=== PATIENT | female | born 2000 | race African-American/Black ===

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

== ENCOUNTER 2018-07-02 16:29 | Emergency (ER) | payer OTHER, SELFPAY ==
[2018-07-02 17:07] LABS: Bilirubin Small (Negative); Blood, Urine Negative (Negative); Clarity Clear (Clear); Glucose, Urine (Dipstick) Negative (Negative); Leukocyte Negative (Negative); Nitrite Negative (Negative); Protein, Urine (Dipstick) 30 mg/dL (Neg-Trace)
[2018-07-02 17:33] LABS: Pregnancy Test - Urine (BHCG) POSITIVE (Negative); Pregu Control Background? CLEAR/WHITE (CLR/WHITE); Pregu Control Bar Appear? YES (CONTROL BAR)
[2018-07-02 17:38] LABS: Bacteria/HPF None Seen HPF (None Seen); RBC/HPF 0-3 HPF (0-3); WBC/HPF None Seen HPF (0-3)
== END 2018-07-02 17:59 | disposition home or self-care (01) ==
LOC: NAV ERS 16:29
DX: O21.9 Vomiting of pregnancy, unspecified (principal); O99.341 Other mental disorders complicating pregnancy, first trimester; F90.9 Attention-deficit hyperactivity disorder, unspecified type; O99.331 Smoking (tobacco) complicating pregnancy, first trimester; F17.210 Nicotine dependence, cigarettes, uncomplicated; Z3A.01 Less than 8 weeks gestation of pregnancy
CPT/HCPCS: 81003; 81015; 81025; 99284

== ENCOUNTER 2018-10-11 12:01 | Outpatient (CLI) | payer OTHER ==
--- NOTE | 2018-10-11 15:54 | ULT ---
OBSTETRICAL ULTRASOUND: 10/11/18 HISTORY: 18-year-old female undergoing assessment for size and dates. TECHNIQUE: Multiplanar tapia scale sonographic imaging of the gravid uterus obtained. FINDINGS: A single intrauterine gestation is present. The performing service person documents a transverse lie. The placenta is located posteriorly. No evidence for previa or abruption. The imaged intracranial contents appear grossly unremarkable. spine, region of kidneys, a nd region of urinary bladder appears grossly unremarkable. Umbilical cord insertion site appear s within normal limits and a three vessel cord is documented. heart rate is 140 beats per minute. Four chamber heart view is suboptimal secondary to po sition. nose and lips appear grossly unremarkable. Region of stomach within normal limits . Amniotic fluid index is approximately 9.6 cm. BIOMETRY: BPD 4.6 cm 20 weeks, 0 days HC 17.5 cm 20 weeks, 0 days AC 15.7 cm 20 weeks, 6 days FL 3.5 cm 21 weeks, 1 day Average aged based on ultrasound is 20 weeks, 2 days plus/minus one week, 0 days. Estimated date of d elivery is 02/26/19. Estimated weight is 279 grams plus/ minus 5 7 grams. IMPRESSION: Single intrauterine gestation as detailed above. Four chamber heart view is suboptimal secondary to position. POS: [facility]
== END 2018-10-11 12:02 | disposition home or self-care (01) ==
LOC: NAV ULT 12:01
PROVIDERS: ATTEND Family Medicine
DX: Z34.82 Encounter for supervision of other normal pregnancy, second trimester (principal)
CPT/HCPCS: 76805

== ENCOUNTER 2019-01-22 09:13 | Outpatient (CLI) | payer OTHER ==
--- NOTE | 2019-01-22 11:24 | ULT ---
EXAM: US OB Complete STANDARD PROVIDED CLINICAL HISTORY: Follow up growth, amniotic fluid index, and position of umbilical artery. COMPARISON: 10/11/2018. FINDINGS: Again noted is a single intrauterine gestation in cephalic presentation. Cardiac Doppler demonstrates heart tones with a heart rate of 162 bpm. The placenta was not imaged on this exam. Images of the lower uterine segment do not demonstrate evidence of placenta previa. The cervix is obs cured due to shadowing. Subjectively, there is a decrease in amniotic fluid volume. However, an amniotic fluid index of 9.4 c m was obtained. biometry measurements: Biparietal diameter 8.34 cm, 33 weeks 4 days Head circumference 30.1 cm, 33 weeks 3 days Abdominal circumference 30.44 cm, 34 weeks 3 days Femur length 6.73 cm, 34 weeks 4 days The estimated gestational age by ultrasound is 33 weeks and 5 days with an EV on 03/07/2019. Gestatio nal age by last menstrual period is 34 weeks and 5 days. The estimated weight by ultrasound is 2388 g (5 pounds, 4 ounces). This represents 32.6 percent ile for weight. There has been interval growth when compared to prior study on 10/11/2018. There is evidence of a 4 chambered heart. The stomach is visualized and has a normal sonographic appe arance. However the degree of the anatomic structures are not well evaluated on this exam. Umbilical artery Doppler evaluation only includes arterial waveform and heart rate. The peak systolic and end-diastolic velocities were not measured, and as a result the pulsatility index or resistive indices are not calculated on this exam. IMPRESSION: 1. Single intrauterine gestation in cephalic presentation with heart tones documented. 2. Subjectively, there appears to be a decrease in amniotic fluid volume, but an amniotic fluid index of 9.4 cm is obtained. 3. Majority of the anatomical structures were not evaluated on this examination. An appropriate umbilical artery Doppler examination was also not performed on this exam.
== END 2019-01-22 09:14 | disposition home or self-care (01) ==
LOC: NAV ULT 09:13
PROVIDERS: ATTEND Family Medicine
DX: O36.5933 Maternal care for other known or suspected poor fetal growth, third trimester, fetus 3 (principal); Z3A.33 33 weeks gestation of pregnancy
CPT/HCPCS: 76805

== ENCOUNTER 2019-01-30 13:53 | Emergency (ER) | payer OTHER ==
[2019-01-30 14:13] LABS: #Basophils 0.1 thou/uL (0.0-0.2); #Lymphocytes 1.3 thou/uL (1.20-3.40); #Monocytes 0.5 thou/uL (0.11-0.59); #Neutrophils 6.6 thou/uL (1.40-6.50); %Basophils 1.4 % (0.0-1.0); %Eosinophils 0.3 % (0.0-10.0); %Lymphocytes 14.9 % (21.0-51.0); %Monocytes 6.2 % (0.0-10.0); %Neutrophils 77.2 % (42.0-75.0); Mean Corpuscular HGB CONC 31.8 g/dL (32.0-36.0); Mean Corpuscular Hemoglobin 29.6 pg (27.0-31.0); Mean Corpuscular Volume 92.9 fL (78.0-98.0); Platelet Count 351 thou/uL (130-400); RBC Distribution Width 13.6 % (11.5-14.5); Red Blood Cell (RBC) Count 3.73 mill/uL (4.20-5.40); White Blood Cell (WBC) Count 8.5 thou/uL (4.8-10.8)
[2019-01-30 14:25] LABS: Bilirubin Negative (Negative); Blood, Urine Negative (Negative); Clarity Clear (Clear); Glucose, Urine (Dipstick) Negative (Negative); Leukocyte Negative (Negative); Nitrite Negative (Negative); Protein, Urine (Dipstick) Trace mg/dL (Neg-Trace); Specific Gravity, Urine 1.015 (1.005-1.030); pH, Urine 7.5 (5.0-9.0)
[2019-01-30 14:37] LABS: ALT (SGPT) 9 U/L (8-55); AST (SGOT) 23 U/L (5-34); Albumin 3.6 g/dL (3.5-5.0); Alkaline Phosphatase 203 U/L (40-150); Anion Gap 16 mmol/L (10-20); BUN (Urea Nitrogen) 4 mg/dL (7.0-18.7); Bilirubin, Total 0.6 mg/dL (0.2-1.2); Calc. Creatinine Clearance 0 mL/min (70-130); Calcium 9.3 mg/dL (7.8-10.44); Carbon Dioxide 18 mmol/L (22-29); Chloride 107 mmol/L (98-107); Estimated GFR-MDRD Greater than 90; Globulin 3.6 g/dL (2.4-3.5); Glucose 81 mg/dL (70-105); Potassium 3.9 mmol/L (3.5-5.1); Protein, Total 7.2 g/dL (6.0-8.3); Sodium 137 mmol/L (136-145)
== END 2019-01-30 14:28 | disposition short-term general hospital (02) ==
LOC: NAV ERS 13:53
DX: O75.89 Other specified complications of labor and delivery (principal); O99.343 Other mental disorders complicating pregnancy, third trimester; F90.9 Attention-deficit hyperactivity disorder, unspecified type; O99.333 Smoking (tobacco) complicating pregnancy, third trimester; F17.210 Nicotine dependence, cigarettes, uncomplicated; Z3A.37 37 weeks gestation of pregnancy
CPT/HCPCS: 51701; 80053; 81003; 85025; A4353

== ENCOUNTER 2021-05-06 10:38 | Emergency (ER) | payer OTHER, SELFPAY ==
[2021-05-06 23:18] LABS: SARS-CoV-2 PCR by NAA Not Detected (NotDetected)
== END 2021-05-06 11:05 | disposition home or self-care (01) ==
LOC: NAV ERS 10:38
DX: J06.9 Acute upper respiratory infection, unspecified (principal); Z20.822 Contact with and (suspected) exposure to COVID-19
CPT/HCPCS: 99283; U0003; U0005

== ENCOUNTER 2025-01-02 20:09 | Emergency (ER) | payer BC, SELFPAY | END 2025-01-02 21:31 | disposition home or self-care (01) | LOC: NAV ERS 20:09 | DX: J20.9 Acute bronchitis, unspecified (principal); E11.9 Type 2 diabetes mellitus without complications | CPT/HCPCS: 71045; 87428; 93005 ==

== ENCOUNTER 2025-07-13 22:29 | Emergency (ER) | payer BC, OTHER, SELFPAY ==
[2025-07-13] MEDS ORDERED: Cephalexin 500 MG CAP ONE (22:51)
[2025-07-13] MEDS ORDERED: Naproxen 500 MG TAB ONE (22:51)
[2025-07-13] MEDS ORDERED: Lidocaine Viscous Sol 2% 15 ml UD Cup ONE (22:52)
[2025-07-13 23:27] LABS: #Basophils 0.1 thou/uL (0.0-0.2); #Eosinophils 0.4 thou/uL (0.0-0.7); #Lymphocytes 3.4 thou/uL (1.20-3.40); #Monocytes 0.6 thou/uL (0.11-0.59); #Neutrophils 3.9 thou/uL (1.40-6.50); %Basophils 1.4 % (0.0-1.0); %Eosinophils 4.3 % (0.0-10.0); %Lymphocytes 40.6 % (21.0-51.0); %Monocytes 6.9 % (0.0-10.0); %Neutrophils 46.8 % (42.0-75.0); Hematocrit 34.8 % (36.0-47.0); Hemoglobin 12.2 g/dL (12.0-16.0); Mean Corpuscular Hemoglobin 31.0 pg (27.0-31.0); Mean Corpuscular Volume 88.3 fl (78.0-98.0); Platelet Count 374 10x3/uL (130-400); Red Blood Cell (RBC) Count 3.94 mill/uL (4.20-5.40); White Blood Cell (WBC) Count 8.3 10x3/uL (4.8-10.8)
[2025-07-13 23:43] LABS: Acetaminophen Less than 10 mcg/mL (Less than 10); Salicylate Less than 8.0 mg/dL (Less than 8.0)
[2025-07-13 23:44] LABS: Glucose, Urine (Dipstick) Negative (Negative); Leukocyte Negative (Negative); Protein, Urine (Dipstick) Negative (Neg-Trace); Specific Gravity, Urine Less/Equal 1.005 (1.005-1.030)
[2025-07-13 23:45] LABS: ALT (SGPT) 11 U/L (Less than 34); AST (SGOT) 19 U/L (11-34); Albumin 4.2 g/dL (3.1-4.5); Alkaline Phosphatase 73 U/L (40-110); Anion Gap 14 mmol/L (10-20); BUN (Urea Nitrogen) 6 mg/dL (7.0-18.7); Bilirubin, Total 0.3 mg/dL (0.3-1.2); Calc. Creatinine Clearance 0 mL/min (70-130); Calcium 9.2 mg/dL (7.8-10.44); Carbon Dioxide 26 mmol/L (22-29); Chloride 105 mmol/L (98-107); Globulin 2.8 g/dL (2.4-3.5); Glucose 138 mg/dL (70-105); Potassium 4.1 mmol/L (3.5-5.1); Sodium 141 mmol/L (136-145)
[2025-07-13 23:47] LABS: Bacteria/HPF None Seen HPF (None Seen); CAUTI Indications for Culture Dysuria,urgency,freq; RBC/HPF None Seen HPF (0-3); WBC/HPF None Seen HPF (0-3)
[2025-07-13 23:48] LABS: Urine Culture Reflex No No
[2025-07-13 23:57] LABS: Cocaine Metabolite Screen Negative (Negative); THC/Cannabinoid Screen PRELIM POSITIVE (Negative); Tricyclic Screen Negative (Negative)
== END 2025-07-14 02:29 | disposition home or self-care (01) ==
LOC: NAV ERS 22:29
DX: K04.7 Periapical abscess without sinus (principal); K08.89 Other specified disorders of teeth and supporting structures; F32.9 Major depressive disorder, single episode, unspecified; E11.9 Type 2 diabetes mellitus without complications; F17.210 Nicotine dependence, cigarettes, uncomplicated; F17.290 Nicotine dependence, other tobacco product, uncomplicated
CPT/HCPCS: 36415; 80053; 80306; 80307; 81001; 85025; 99285